=== PATIENT | male | born 1965 | race African-American/Black ===

== ENCOUNTER 2017-08-27 05:23 | Inpatient (IN) | payer BC, OTHER ==
[2017-08-27 06:15] LABS: #Basophils 0.1 thou/uL (0.0-0.2); #Eosinphils 0.2 thou/uL (0.0-0.7); #Lymphocytes 2.6 thou/uL (1.20-3.40); #Monocytes 0.9 thou/uL (0.11-0.59); #Neutrophils 10.2 thou/uL (1.40-6.50); %Basophils 0.9 % (0.0-1.0); %Eosinophils 1.5 % (0.0-10.0); %Lymphocytes 18.7 % (21.0-51.0); %Monocytes 6.6 % (0.0-10.0); %Neutrophils 72.4 % (42.0-75.0); Hemoglobin 14.8 g/dL (14.0-18.0); Mean Corpuscular HGB CONC 35.1 g/dL (32.0-36.0); Mean Corpuscular Hemoglobin 28.9 pg (27.0-31.0); Mean Corpuscular Volume 82.2 fl (80.0-94.0); Platelet Count 216 thou/uL (130-400); RBC Distribution Width 13.4 % (11.5-14.5); Red Blood Cell (RBC) Count 5.14 mill/uL (4.70-6.10)
[2017-08-27 06:29] LABS: ALT (SGPT) 31 U/L (8-55); AST (SGOT) 18 U/L (5-34); Albumin 4.5 g/dL (3.5-5.0); Alkaline Phosphatase 67 U/L (40-150); Anion Gap 15 mmol/L (10-20); BUN (Urea Nitrogen) 14 mg/dL (8.4-25.7); Bilirubin, Total 0.3 mg/dL (0.2-1.2); Calc. Creatinine Clearance 0 mL/min (70-130); Calcium 9.6 mg/dL (7.8-10.44); Carbon Dioxide 21 mmol/L (22-29); Chloride 105 mmol/L (98-107); Estimated GFR-MDRD Greater than 90; Globulin 3.5 g/dL (2.4-3.5); Glucose 179 mg/dL (70-105); Potassium 4.2 mmol/L (3.5-5.1); Sodium 137 mmol/L (136-145)
[2017-08-27] MEDS ORDERED: Morphine 4 MG/ML VIAL ONE ×2 (06:49→09:46)
--- NOTE | 2017-08-27 07:48 | RAD ---
RIGHT WRIST 3 VIEWS: HISTORY: Right wrist pain. FINDINGS: Scaphoid waist is intact. No acute fracture or dislocation. Arthritis changes are most pronounced a t the lunotriquetral joint. Ulnar styloid is intact. IMPRESSION: Arthritic changes lateral aspect proximal carpal row. No acute osseous abnormalities are demonstrate d. POS: [facility]
[2017-08-27] MEDS ORDERED: Aspirin 325 MG TAB ONE (07:50)
[2017-08-27] MEDS ORDERED: Labetalol HCl 100 MG/20 ML VIAL ONE (07:58)
[2017-08-27 08:44] LABS: BF Color Pink; Body Fluid Source SYNOVIAL FLUID; Clarity Cloudy/Turbid (Clear); Tube # SYRINGE
[2017-08-27 08:45] LABS: RBC Background Count 0.005
[2017-08-27 08:46] LABS: WBC/NonHematic-Auto 76800 /cumm
[2017-08-27 08:49] LABS: RBC Count-Automated 186000 /cumm
[2017-08-27 09:52] LABS: BF Segmented Neutrophils 86 %; Cell Count Non Hematic 7 %; Lymphocytes 7 %
--- NOTE | 2017-08-27 11:05 | PDOC.FPRHP ---
- History of Present Illness Chief Complaint: R-wrist pain History of Present Illness: 52 y/o M w/ PMHx of HTN and polyarthritis presents for evaluation of right wrist pain that started 2 days ago. Reports similar sxs in other joints, but never this bad. Denies any fevers, chills, headaches, change in vision, focal neurological deficits. Has been seen by a doctor before for this, states it usually doesn't bother him. States he was given some medication for this by a Doctor in [place], [place]. Denies any hx of gout. States wrist pain started out as a sharp 1/10 pain that worsened to 10/10 a when coming home yesterday. Endorses increased swelling and pain w/ movement. Denies any numbness or tingling. Denies any trauma to the affected joint. Code status: FULL CODE, discussed in detail with patient. Benecar , amlodipine 10 mg, colonidine NKDA No surgeries FHx DM- mother HTN - mother ED Course: 8 mg morphine 325 mg ASA 20 mg labetolol - Allergies/Adverse Reactions Allergies Allergy/AdvReac Type Severity Reaction Status Date / Time No Known Drug Allergies Allergy Verified 08/27/17 11:06 - Home Medications Medication Instructions Recorded Confirmed Type Acetaminophen [Tylenol Regular 650 mg PO Q4H PRN tab 08/29/17 Rx Strength] Amlodipine [Norvasc] 10 mg PO DAILY #30 tab 08/29/17 Rx Colchicine [Colcrys] 0.6 mg PO BID #60 tab 08/29/17 Rx Indomethacin [Indocin] 50 mg PO TIDPRN PRN #90 cap 08/29/17 Rx Metoprolol Tartrate [Lopressor] 50 mg PO BID #60 tab 08/29/17 Rx Olmesartan Medoxomil [Benicar] 20 mg PO DAILY #30 tab 08/29/17 Rx cloNIDine HCl 0.1 mg PO BID #60 tablet 08/29/17 Rx - History PMHx: HTN PSHx: None FHx: DM - mother HTN - mother Social: Tobacco 1/2 PPD since 1999 EtOH 3 beers a day. No hx of withdrawal sxs Hx of illicit drug use, but stopped in 1989 - Review of Systems General: denies: fever/chills, weight/appetite/sleep changes Eyes: denies: eye pain, vision changes ENT: denies: rhinorrhea Respiratory: denies: cough, shortness of breath Cardiovascular: denies: chest pain Gastrointestinal: denies: nausea, vomiting Genitourinary: denies: dysuria Skin: denies: rashes Musculoskeletal: reports: pain, tenderness, swelling Neurological: denies: numbness, syncope, weakness Psychological: denies: anxiety, depression - Vital signs BP: 202/110 HR: 91 RR: 19 Tmax: 98.3 Pox: 99% on RA Wt: 86.18 kg - Physical Exam Constitutional: NAD -Constitutional: obese HEENT: normocephalic and atraumatic, PERRLA, EOMI, grossly normal vision, MMM Neck: supple Heart: RRR, no murmurs/rubs/gallops Lungs: CTAB, no respiratory distress, good air movement, no wheezing Abdomen: soft, non-tender, bowel sounds present -Musculoskeletal: R-wrist swollen, TTP over wrist joint line. Decreased active ROM 2/2 pain. Warm to touch. Neurological: no focal deficit, CN II-XII intact, normal sensation Skin: no rash/lesions, capillary refill <2 seconds Heme/Lymphatic: no unusual bruising or bleeding, no purpura Psychiatric: normal mood and affect, good judgment and insight FMR H&P: Results - Labs Result Diagrams: 08/29/17 04:22 08/29/17 04:22 Lab results: WBC 14.0 thou/uL (4.8-10.8) H 08/27/17 06:07 Hgb 14.8 g/dL (14.0-18.0) 08/27/17 06:07 Hct 42.3 % (42.0-52.0) 08/27/17 06:07 MCV 82.2 fl (80.0-94.0) 08/27/17 06:07 Plt Count 216 thou/uL (130-400) 08/27/17 06:07 Neutrophils % 72.4 % (42.0-75.0) 08/27/17 06:07 ESR Westergren 22 mm/hr (Less than 20) 08/27/17 06:07 Sodium 137 mmol/L (136-145) 08/27/17 06:07 Potassium 4.2 mmol/L (3.5-5.1) 08/27/17 06:07 Chloride 105 mmol/L (98-107) 08/27/17 06:07 Carbon Dioxide 21 mmol/L (22-29) L 08/27/17 06:07 BUN 14 mg/dL (8.4-25.7) 08/27/17 06:07 Creatinine 0.89 mg/dL (0.6-1.3) 08/27/17 06:07 Glucose 179 mg/dL (70-105) H 08/27/17 06:07 Calcium 9.6 mg/dL (7.8-10.44) 08/27/17 06:07 Total Bilirubin 0.3 mg/dL (0.2-1.2) 08/27/17 06:07 AST 18 U/L (5-34) 08/27/17 06:07 ALT 31 U/L (8-55) 08/27/17 06:07 Alkaline Phosphatase 67 U/L (40-150) 08/27/17 06:07 C-Reactive Protein 0.91 mg/dL (= or < 0.5) H 08/27/17 06:07 Serum Total Protein 8.0 g/dL (6.0-8.3) 08/27/17 06:07 Albumin 4.5 g/dL (3.5-5.0) 08/27/17 06:07 - EKG Interpretation EKG: NSR 86 bpm - Radiology Interpretation Other Status: report reviewed by me Additional comment: RIGHT WRIST 3 VIEWS: HISTORY: Right wrist pain. FINDINGS: Scaphoid waist is intact. No acute fracture or dislocation. Arthritis changes are most pronounced a t the lunotriquetral joint. Ulnar styloid is intact. IMPRESSION: Arthritic changes lateral aspect proximal carpal row. No acute osseous abnormalities are demonstrate FMR H&P: A/P - Problem List (1) Hypertensive urgency Status: Acute Code(s): I16.0 - HYPERTENSIVE URGENCY Assessment and Plan: Pt did not take BP meds this AM 2/2 pain and coming straight to the ER Possibly 2/2 rebound HTN from not taking his usual clonidine Will plan to restart home Benecar and amlodipine and clonidine Currently asymptomatic Decreased from initial MAP of 188 to 145 since presentation to ER at 0530 this AM to 1130 for most recent w/ a reduction in MAP of 43 placing him near the 25- 30% reduction in MAP over the first few hours Will add home meds for goal BP <160/100 Indeterminate trop likely 2/2 demand with normal EKG Downtrending on most recent lab value Cont. to monitor (2) Acute gout Status: Acute Code(s): M10.9 - GOUT, UNSPECIFIED Qualifiers: Gout site: wrist Gout etiology: idiopathic Laterality: right Qualified Code(s): M10.031 - Idiopathic gout, right wrist Assessment and Plan: Arthorcentesis showing monosodium urate crystals Uric acid level of 8.9 Dr. Harmon of Ortho consulted Awaiting recs Will start colchicine (3) Elevated troponin Status: Resolved Code(s): R74.8 - ABNORMAL LEVELS OF OTHER SERUM ENZYMES Assessment and Plan: Indeterminate trop likely 2/2 demand from his elevated BP Will cont to trend Admit to tele Attending Addendum - Attending Addendum Date/Time: 08/31/172001 I personally evaluated the patient and discussed the management with Dr. Caldwell. I agree with the History, Examination, Assessment and Plan documented above with any addition or exceptions noted below. 52 y.o. BM with h/o HTN here with Right wrist pain s/p arthrocentesis to r/o septic arthritis and found to have gouty findings. BP's in sever range and being admitted to initiate gout treatment and gradual reduction of BP for Hypertensive urgency.
--- NOTE | 2017-08-27 11:33 | CON ---
DATE OF CONSULTATION: 08/27/2017 CHIEF COMPLAINT: Right wrist pain. HISTORY OF PRESENT ILLNESS: Mr. Dimas is a 52-year-old male who has a 3 day history of right wrist pain. He has had similar pain in the past, but it has been several years. He says in the past his p ain spontaneously resolved after several days. He has an acute onset of pain without trauma. He is right hand dominant. 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 He has swelling and difficulty with motion. He presented to the emergency room because of this today. He has had an aspirate performed, 1 mL of fluid was as pirated and sent to the lab. This showed an elevated white blood cell count. Orthopedics was consul darryl to evaluate for possible infection of the right wrist. PAST MEDICAL HISTORY: Hypertension. He denies other active medical problems. PAST SURGICAL HISTORY: Denies recent surgeries. MEDICATIONS: He is on a medication for hypertension, but he is hypertensive in the Emergency Room to day. FAMILY MEDICAL HISTORY: Noncontributory. SOCIAL HISTORY: The patient's is at the bedside. He is actively employed. REVIEW OF SYSTEMS: Positive for right wrist pain, otherwise negative remainder of review of systems. PHYSICAL EXAMINATION: VITAL SIGNS: The patient's vital signs are stable. He has been hypertensive. He is otherwise afebr ile, 98% on room air. GENERAL: He is alert, sitting upright in no apparent distress, talkative. HEENT: Normocephalic, atraumatic. RESPIRATORY: Breathing comfortably. CARDIOVASCULAR: Pulses palpable and regular peripherally. MUSCULOSKELETAL: The patient's right wrist has swelling and faint erythema about the wrist. He has pain with wrist motion. He has dorsal wrist tenderness. No significant volar wrist tenderness. He is able to gently flex and extend the fingers distally, but cannot make a complete fist. He has pain with any wrist motion. IMAGES: X-rays of the right wrist demonstrate no acute findings. There is some irregularity of the lunate which appears chronic. ASSESSMENT AND PLAN: Possible gout flare versus septic arthritis of the right wrist. PLAN: At this point, I think the patient's most likely diagnosis will be gout, given that he has had recurrent wrist pain in the past which has resolved without treatment. His white blood cell count f rom his aspirate is elevated, but this could represent gout as well. There was not enough fluid for crystal analysis unfortunately. We will order uric acid level and if this is high, this will reinfor ce that he does have gout. He should be admitted to the hospital today. He will have blood pressure control as well as pain control. We will reevaluate him tomorrow morning. If he has worsened or ferguson s fevers or more conclusive evidence of infection we will go ahead and wash his wrist tomorrow. If h e is improving, then we will continue with gout treatment. N.p.o. at midnight in case he does need s urgery.
[2017-08-27 12:47] LABS: Troponin I 0.028 ng/mL (< 0.028)
[2017-08-27] MEDS ORDERED: Acetaminophen 325 MG TAB PO PRN ×2 (13:00→13:07)
[2017-08-27] MEDS ORDERED: Amlodipine 10 MG TAB PO SCH (13:07)
[2017-08-27] MEDS ORDERED: Labetalol HCl 100 MG/20 ML VIAL SLOW IVP PRN ×2 (13:07→16:11)
[2017-08-27] MEDS ORDERED: Ondansetron ODT 4 MG TAB PO PRN (13:07)
[2017-08-27] MEDS ORDERED: cloNIDine 0.1 MG TAB PO SCH (13:07)
[2017-08-27] MEDS ORDERED: Colchicine 0.6 MG TAB PO ONE (13:30)
[2017-08-27] MEDS ORDERED: Colchicine 0.6 MG TAB PO SCH (13:30)
[2017-08-27] MEDS ORDERED: Morphine 5 MG/ML SYRINGE SLOW IVP PRN ×3 (14:08→15:32)
[2017-08-27 14:32] VITALS: BMI 29.1
[2017-08-27] MEDS: Labetalol HCl 100 MG/20 ML VIAL SLOW IVP SCH ×3 (15:41→17:29)
[2017-08-27] MEDS ORDERED: Indomethacin 25 mg Capsule PO PRN (16:30)
[2017-08-27] MEDS ORDERED: Morphine 4 MG/ML VIAL SLOW IVP PRN (19:00)
[2017-08-27] MEDS: Morphine 4 MG/ML VIAL SLOW IVP PRN (19:48)
[2017-08-27] MEDS: cloNIDine 0.1 MG TAB PO SCH (21:03)
[2017-08-28 05:17] LABS: #Basophils 0.1 thou/uL (0.0-0.2); #Eosinphils 0.1 thou/uL (0.0-0.7); #Lymphocytes 3.1 thou/uL (1.20-3.40); #Monocytes 1.4 thou/uL (0.11-0.59); #Neutrophils 8.2 thou/uL (1.40-6.50); %Basophils 0.5 % (0.0-1.0); %Eosinophils 0.7 % (0.0-10.0); %Lymphocytes 24.4 % (21.0-51.0); %Monocytes 10.6 % (0.0-10.0); %Neutrophils 63.7 % (42.0-75.0); Hemoglobin 14.1 g/dL (14.0-18.0); Mean Corpuscular HGB CONC 33.5 g/dL (32.0-36.0); Mean Corpuscular Hemoglobin 28.5 pg (27.0-31.0); Mean Platelet Volume 9.7 fL (7.4-10.4); Platelet Count 208 thou/uL (130-400); RBC Distribution Width 13.4 % (11.5-14.5); Red Blood Cell (RBC) Count 4.95 mill/uL (4.70-6.10); White Blood Cell (WBC) Count 12.8 thou/uL (4.8-10.8)
[2017-08-28 05:28] LABS: Anion Gap 14 mmol/L (10-20); BUN (Urea Nitrogen) 13 mg/dL (8.4-25.7); Calc. Creatinine Clearance 133 mL/min (70-130); Calcium 9.7 mg/dL (7.8-10.44); Carbon Dioxide 25 mmol/L (22-29); Chloride 104 mmol/L (98-107); Estimated GFR-MDRD Greater than 90; Glucose 160 mg/dL (70-105); Sodium 139 mmol/L (136-145)
[2017-08-28] MEDS: Nicotine 14 MG PATCH TD SCH (08:28)
[2017-08-28] MEDS: cloNIDine 0.1 MG TAB PO SCH ×2 (08:28→20:50)
[2017-08-28] MEDS: Colchicine 0.6 MG TAB PO SCH ×2 (08:28→20:50)
[2017-08-28] MEDS: Amlodipine 10 MG TAB PO SCH (08:29)
[2017-08-28] MEDS ORDERED: hydrALAZINE 25 MG TAB PO SCH (12:30)
--- NOTE | 2017-08-28 13:43 | PDOC.FM ---
- Subjective Subjective: No acute events overnight. BP remains labile. He denies any symptoms with the increased bp including headache, cp, sob, nvdc. He does report persistent wrist pain but states it is improved from yesterday. He has some arom in rt wrist today. - Objective Vital Signs & Weight: Vital Signs (12 hours) Temp Pulse Resp BP BP Pulse Ox 08/28/17 13:00 197/102 H 08/28/17 12:37 91 08/28/17 12:00 207/112 H 08/28/17 11:15 99.1 F 91 16 176/103 H 96 08/28/17 10:00 79 174/91 H 08/28/17 09:00 84 203/101 H 08/28/17 08:29 76 08/28/17 08:28 191/98 H 08/28/17 08:00 98.9 F 76 20 97 08/28/17 07:00 98.9 F 76 20 197/102 H 97 08/28/17 03:22 99.5 F 82 18 182/96 H 96 I&O: 08/27/17 08/28/17 08/29/17 06:59 06:59 06:59 Intake Total 300 360 Output Total 1100 Balance -800 360 Result Diagrams: 08/28/17 04:51 08/28/17 04:52 <Nitin Cordero - Last Filed: 08/28/17 13:42> - Objective Vital Signs & Weight: Vital Signs (12 hours) Temp Pulse Resp BP BP BP Pulse Ox 08/29/17 09:13 100 211/111 H 08/29/17 09:12 221/111 H 08/29/17 08:00 99.4 F 100 18 199/125 H 100 08/29/17 04:00 99.4 F 64 17 199/102 H 99 08/29/17 00:30 99.4 F 85 18 208/98 H 98 I&O: 08/28/17 08/29/17 08/30/17 06:59 06:59 06:59 Intake Total 300 1841 Output Total 1100 2475 Balance -800 -634 Result Diagrams: 08/29/17 04:22 08/29/17 04:22 <Guilherme Padilla - Last Filed: 08/29/17 11:53> Phys Exam - Physical Examination Constitutional: NAD HEENT: PERRLA, sclera anicteric Neck: no nodes, no JVD Respiratory: no wheezing, no rales, no rhonchi, clear to auscultation bilateral Cardiovascular: RRR, no significant murmur, no rub Gastrointestinal: soft, non-tender, no distention, positive bowel sounds Musculoskeletal: pulses present edematous rt wrist, ttp and with arom Neurological: non-focal, moves all 4 limbs Skin: cap refill <2 seconds <Nitin Cordero - Last Filed: 08/28/17 13:42> Dx/Plan (1) Acute gout Code(s): M10.9 - GOUT, UNSPECIFIED Status: Acute (2) Hypertensive urgency Code(s): I16.0 - HYPERTENSIVE URGENCY Status: Acute (4) Elevated troponin Code(s): R74.8 - ABNORMAL LEVELS OF OTHER SERUM ENZYMES Status: Acute - Plan Plan: 1) Acute gout: Pt seen by ortho, recommend no surgery as there is no concern for septic arthritis. Cont indomethacin and colchicine. Additional pain control with IV morphine prn for breakthrough. 2) HTN urgency: -BP remains labile, will add hydralazine one time today and trend bp. Cont home medications for now and target BP today will be <160/110. 3) Elevated troponins: resolved -trended down and indeterminent level at maximum. Pt asymptomatic. <Nitin Cordero - Last Filed: 08/28/17 13:42> Attending Addendum - Attending Addendum Date/Time: 08/29/17 1152 I personally evaluated the patient and discussed the management with Dr. Davies. I agree with the History, Examination, Assessment and Plan documented above with any addition or exceptions noted below. Continue Colchicine and Indocin for gout, Treat Hypertension. <Guilherme Padilla - Last Filed: 08/29/17 11:53>
[2017-08-28] MEDS: Morphine 4 MG/ML VIAL SLOW IVP PRN ×2 (15:10→22:23)
[2017-08-28] MEDS: Indomethacin 25 mg Capsule PO PRN (15:39)
[2017-08-29 05:19] LABS: #Basophils 0.1 thou/uL (0.0-0.2); #Eosinphils 0.2 thou/uL (0.0-0.7); #Lymphocytes 3.5 thou/uL (1.20-3.40); #Neutrophils 5.8 thou/uL (1.40-6.50); %Basophils 0.7 % (0.0-1.0); %Eosinophils 2.2 % (0.0-10.0); %Monocytes 9.2 % (0.0-10.0); %Neutrophils 54.9 % (42.0-75.0); Hemoglobin 14.2 g/dL (14.0-18.0); Mean Corpuscular HGB CONC 34.1 g/dL (32.0-36.0); Mean Corpuscular Hemoglobin 28.4 pg (27.0-31.0); Mean Corpuscular Volume 83.4 fl (80.0-94.0); Mean Platelet Volume 9.7 fL (7.4-10.4); Platelet Count 198 thou/uL (130-400); RBC Distribution Width 13.2 % (11.5-14.5); Red Blood Cell (RBC) Count 4.99 mill/uL (4.70-6.10); White Blood Cell (WBC) Count 10.6 thou/uL (4.8-10.8)
[2017-08-29 05:36] LABS: Anion Gap 12 mmol/L (10-20); BUN (Urea Nitrogen) 10 mg/dL (8.4-25.7); Calc. Creatinine Clearance 147 mL/min (70-130); Calcium 9.4 mg/dL (7.8-10.44); Carbon Dioxide 25 mmol/L (22-29); Chloride 104 mmol/L (98-107); Estimated GFR-MDRD Greater than 90; Glucose 161 mg/dL (70-105); Potassium 3.8 mmol/L (3.5-5.1); Sodium 137 mmol/L (136-145)
--- NOTE | 2017-08-29 07:18 | PDOC.FM ---
- Subjective Subjective: No acute events overnight. Pt bp remains labile, although he is asymptomatic @ 200s systolic. Currently reports his wrist pain continues to improve and he has improved AROM. He denies cp, sob, nvdc, headache, changes in vision. - Objective Vital Signs & Weight: Vital Signs (12 hours) Temp Pulse Resp BP BP Pulse Ox 08/29/17 04:00 99.4 F 64 17 199/102 H 99 08/29/17 00:30 99.4 F 85 18 208/98 H 98 08/28/17 20:50 221/111 H 08/28/17 19:55 98.9 F 91 17 202/102 H 100 08/28/17 19:50 98.1 F 95 20 100 I&O: 08/28/17 08/29/17 08/30/17 06:59 06:59 06:59 Intake Total 300 1601 Output Total 1100 1475 Balance -800 126 Result Diagrams: 08/29/17 04:22 08/29/17 04:22 <Nitin Cordero - Last Filed: 08/29/17 07:16> - Objective Vital Signs & Weight: Vital Signs (12 hours) Temp Pulse Resp BP BP BP Pulse Ox 08/29/17 09:13 100 211/111 H 08/29/17 09:12 221/111 H 08/29/17 08:00 99.4 F 100 18 199/125 H 100 08/29/17 04:00 99.4 F 64 17 199/102 H 99 08/29/17 00:30 99.4 F 85 18 208/98 H 98 I&O: 08/28/17 08/29/17 08/30/17 06:59 06:59 06:59 Intake Total 300 1841 Output Total 1100 2475 Balance -800 -634 Result Diagrams: 08/29/17 04:22 08/29/17 04:22 <Guilherme Padilla - Last Filed: 08/29/17 11:58> Phys Exam - Physical Examination Constitutional: NAD HEENT: PERRLA, moist MMs, sclera anicteric Neck: no nodes, no JVD Respiratory: no wheezing, no rales, no rhonchi, clear to auscultation bilateral Cardiovascular: RRR, no significant murmur, no rub Gastrointestinal: soft, non-tender, no distention, positive bowel sounds Musculoskeletal: pulses present, edema present non-pitting trace edema rt wrist. Decrease AROM/PROM rt wrist Neurological: non-focal, moves all 4 limbs <Nitin Cordero - Last Filed: 08/29/17 07:16> Dx/Plan (1) Acute gout Code(s): M10.9 - GOUT, UNSPECIFIED Status: Acute QualifierTitle: Gout site: wrist Gout etiology: idiopathic Laterality: right Qualified Code(s): M10.031 - Idiopathic gout, right wrist (2) Hypertensive urgency Code(s): I16.0 - HYPERTENSIVE URGENCY Status: Acute (3) HTN (hypertension) Code(s): I10 - ESSENTIAL (PRIMARY) HYPERTENSION Status: Acute (4) Elevated troponin Code(s): R74.8 - ABNORMAL LEVELS OF OTHER SERUM ENZYMES Status: Resolved - Plan Plan: 1) Acute gout: Cont indomethicin and colchicine. Pt reports improvement of pain overnight. Only recieved one dose of morphine overnight. Overall, improved. 2) HTN urgency: -BP remains labile, hydralazine tid today. Goal BP <160/110 ultimately, but pt remains aasymptomatic even at 200. Cont home medications, add hydralazine tid 3) HTN: -cont home medications, will add hydralazine tid 4) Elevated troponins: resolved -pt remains asymptomatic. Trops down trended <Nitin Cordero - Last Filed: 08/29/17 07:16> Attending Addendum - Attending Addendum Date/Time: 08/29/17 1157 I personally evaluated the patient and discussed the management with I agree with the History, Examination, Assessment and Plan documented above with any addition or exceptions noted below. Wrist pain and inflammation much improved. Adjust anti Hypertensive meds and plan for discharge. <Guilherme Padilla - Last Filed: 08/29/17 11:58>
[2017-08-29] MEDS ORDERED: hydrALAZINE 25 MG TAB PO SCH ×2 (09:00)
[2017-08-29] MEDS: Nicotine 14 MG PATCH TD SCH (09:11)
[2017-08-29] MEDS: Colchicine 0.6 MG TAB PO SCH (09:12)
[2017-08-29] MEDS: cloNIDine 0.1 MG TAB PO SCH (09:12)
[2017-08-29] MEDS: Amlodipine 10 MG TAB PO SCH (09:13)
[2017-08-29] MEDS: Indomethacin 25 mg Capsule PO PRN (09:17)
[2017-08-29] MEDS ORDERED: Metoprolol Tartrate 50 MG TAB PO SCH ×2 (10:00→21:00)
[2017-08-29] MEDS: Morphine 4 MG/ML VIAL SLOW IVP PRN (11:04)
[2017-08-29 15:25] VITALS: BP 180/69; TEMP 98
[2017-08-29] MEDS ORDERED: Metoprolol Tartrate 25 MG TAB PO SCH (21:00)
--- NOTE | 2017-08-31 10:04 | DIS-2 ---
DATE OF ADMISSION: 08/27/2017 DATE OF DISCHARGE: 08/29/2017 LOCATION: [facility] in [place], [place]. RESIDENT PHYSICIAN: Nitin Cordero DO ADMITTING ATTENDING: Maynor Ruiz M.D. DISCHARGE ATTENDING: Guilherme Padilla M.D. CONSULTATIONS: Orthopedic Surgery, Dr. Harmon. PROCEDURE: Wrist x-ray done on 08/27/2017 showed arthritic changes of the lateral aspect of the prox imal carpal row. No acute osseous abnormalities demonstrated. PRIMARY DIAGNOSES: 1. Acute gout. 2. Hypertensive urgency. SECONDARY DIAGNOSIS: Hypertension. DISCHARGE MEDICATIONS: 1. Tylenol 325 mg 2 tablets p.o. q.4 hours p.r.n. for pain. 2. Amlodipine 10 mg p.o. daily. 3. Clonidine 0.1 mg p.o. b.i.d. 4. Colchicine 0.6 mg p.o. b.i.d. 5. Indomethacin 50 mg p.o. t.i.d. 6. Metoprolol 50 mg p.o. b.i.d. 7. Benicar 20 mg daily. DISCONTINUED MEDICATIONS: None. HISTORY OF PRESENT ILLNESS AND HOSPITAL COURSE: The patient is a 52-year-old male with a past medica l history of hypertension, previously uncontrolled, who came in for acute onset right wrist pain that started 2 days before presentation. Denied any pain in other joints. He denies fever, chills, head aches, change in vision, or focal deficits. On initial presentation, he rated the pain at 10/10. It should be noted that the patient was unable to complete full sentences secondary to the pain level. The pain was subsequently controlled with opiate analgesics and the patient remained in the hospital until his pain had subsided and he had regained some movement within his right wrist. The patient's hospital course was complicated by the fact that his blood pressures had remained eleva darryl to a max of 273/135; however, the patient was asymptomatic during this time aside from the pain i n his wrist. Upon discharge, the patient's blood pressure trended down to 166/101 and he was asympto matic. He denied headache, chest pain, nausea, vomiting, or diaphoresis. He was instructed to have close outpatient followup with his primary care provider. PERTINENT LABORATORY DATA: Fluid was drained from the right wrist and the color was pink. Fluid cla rity was cloudy/turbid. White blood cell count was 76,000, red blood cell count was 186,000, 86% francine trophils, 7% lymphocytes, and the path review was positive for urate crystals. DISPOSITION: The patient left the hospital in stable condition. DISCHARGE INSTRUCTIONS: 1. Location: The patient was discharged to home. 2. Diet: Heart healthy. 3. Activity: Ad chantale. 4. Followup: Follow up with primary care provider in 7-10 days following discharge.
== END 2017-08-29 15:49 | disposition home or self-care (01) | DRG 554 ==
LOC: ERS 05:23 → 2NO 13:09 → IMCU/EMU 18:37
PROVIDERS: ADMIT Student in an Organized Health Care Education/Training Program; ATTEND Student in an Organized Health Care Education/Training Program
PROC: 0R9N3ZX Drainage of Right Wrist Joint, Percutaneous Approach, Diagnostic (ICD-10-PCS; principal; 2017-08-28)
DX: M10.031 Idiopathic gout, right wrist (principal); F17.210 Nicotine dependence, cigarettes, uncomplicated; I16.0 Hypertensive urgency; I10 Essential (primary) hypertension; R74.8 Abnormal levels of other serum enzymes; M13.0 Polyarthritis, unspecified
CPT/HCPCS: 20605; 36415; 80048; 80053; 84484; 84550; 85025; 85060; 85652; 86140; 87070; 87205; 89051; 89060; 93005; 96374; 96375; 96376; J2270

== ENCOUNTER 2022-03-03 08:41 | Outpatient (CLI) | payer OTHER | END 2022-03-03 08:42 | disposition home or self-care (01) | LOC: CT 08:41 | PROVIDERS: ATTEND General Practice | DX: Z12.2 Encounter for screening for malignant neoplasm of respiratory organs (principal); F17.210 Nicotine dependence, cigarettes, uncomplicated; J43.9 Emphysema, unspecified | CPT/HCPCS: 71271 ==